=== PATIENT | female | born 1975 | race Caucasian/White ===

== ENCOUNTER 2016-06-12 09:27 | Day surgery (SDC) | payer BC ==
[~2016-06-12 09:27] MED LIST: OMNIPAQUE 300 MG/50 ML (CATH LAB) IV ONE; WATER FOR IRRIG STERILE IR ONE
--- NOTE | 2016-06-12 10:21 | Short Stay Summary ---
Short Stay Documentation Date of service: 06/12/16 - History H&P: obtained from office - Allergies and Medications Current Medications: Allergies No Known Allergies Allergy (Verified 06/04/16 11:32) Home Medications Medication Instructions Recorded Confirmed Last Taken Type Nitrofurantoin Macrocrysta(Nf) 100 mg PO BID 06/04/16 06/12/16 06/09/16 History [Macrodantin CAP] oxyCODONE /ACETAMINOPHEN [Percocet 1 tab PO PRN PRN 06/04/16 06/12/16 06/11/16 History 5/325 mg] - Brief post op/procedure progress note Date of procedure: 06/12/16 Pre-op diagnosis: right uret stone 3mnm Anesthesia: RAMONA Surgeon: YAYA CHÁVEZ Estimated blood loss: minimal Condition: stable - Hospital course Hospital course: [facility]pac[facility] - Disposition Condition at discharge: Good Disposition: DISCHARGED TO HOME OR SELFCARE Short Stay Discharge Plan Activity: advance as tolerated Diet: advance as tolerated Follow up with: YAYA CHÁVEZ MD [Staff Physician] - 7 Days
--- NOTE | 2016-06-12 10:31 | Anesthesia Day of Surgery ---
Anesthesia Day of Surgery - Day of Surgery Patient Examined: Yes Patient H&P Reviewed: Yes Patient is NPO: Yes
--- NOTE | 2016-06-12 10:31 | Anesthesia Consultation ---
Anesthesia Consult and Med Hx Date of service: 06/12/16 - Airway Anesthetic Teeth Evaluation: Good ROM Head & Neck: Adequate Mental/Hyoid Distance: Adequate Mallampati Class: Class II Intubation Access Assessment: Probably Good - Pre-Operative Health Status ASA Pre-Surgery Classification: ASA1 Proposed Anesthetic Plan: General - Pulmonary Hx Smoking: No Hx Sleep Apnea: No (DION PRE SCREEN NEGATIVE) - Cardiovascular System Hx Hypertension: No - Endocrine Hx Renal Disease: Yes (kidney stones) - Other Systems Hx Cancer: No
[2016-06-12] MEDS ORDERED: XYLOCAINE MPF 2% ONE (10:40)
[2016-06-12] MEDS ORDERED: DILAUDID ONE (10:40)
[2016-06-12] MEDS ORDERED: ZOFRAN ONE (10:40)
[2016-06-12] MEDS ORDERED: DIPRIVAN 10 MG/ML IV ONE (10:41)
[2016-06-12] MEDS ORDERED: WATER FOR IRRIG STERILE IR ONE (10:52)
[2016-06-12] MEDS ORDERED: OMNIPAQUE 300 MG/50 ML (CATH LAB) IV ONE (10:52)
[2016-06-12] MEDS ORDERED: PEPCID IV NR (11:00)
[2016-06-12] MEDS ORDERED: NACL 0.9% 1000 ML 1,000 ML IV SCH (11:00)
[2016-06-12] MEDS ORDERED: VERSED IV NR (11:00)
[2016-06-12] MEDS ORDERED: ANCEF/STERILE WATER 2 GM/20 ML IV NR (11:00)
--- NOTE | 2016-06-12 12:28 | Post Anesthesia Evaluation ---
- Post Anesthesia Evaluation Patient Participated: Yes Airway Patent: Yes Stable Respiratory Function: Yes Nausea/Vomiting: No Temp > 96.8F: Yes Pain Manageable: Yes Adequeate Hydration: Yes Anesthesia Complications: No
[2016-06-12 13:11] VITALS: BP 106/67
--- NOTE | 2016-06-13 09:02 | Fluoroscopy Report ---
FLUOROSCOPY RETROGRADE FLUOROSCOPY History: Right ureteral stone. Findings: Fluoroscopy was provided by radiology during retrograde urography by Dr. Stark with urology. 11 fluoroscopic images were captured. The left pyelogram is normal. No filling defect or abnormal dilatation. The right Polygram demonstrates an occluding stone or other filling defect in the mid to distal right ureter. Operative notes say the right ureteral stone was removed with a grasper. Subsequent images demonstrate right ureteroscopy and placement of a right ureteral stent which adequately drains the right renal collecting system on the final image. Impression: Right ureteral stone, removed. Right ureteral stent placement as described. Please correlate with procedural report by Dr. Stark.
--- NOTE | 2016-06-20 09:31 | Operative Report ---
PREOPERATIVE DIAGNOSIS: Right distal ureteral 3 mm stone. POSTOPERATIVE DIAGNOSIS: Right distal ureteral 3 mm stone. PROCEDURES: Right ureteroscopy, stone basket extraction, laser. ESTIMATED BLOOD LOSS: Minimal. COMPLICATIONS: None. FINDINGS: Right distal spiculated stone making it difficult for removal. CLINICAL INDICATIONS: The patient counseled RCBA, antibiotics, SCDs, did undergo expected management. She had not undergone expected management and had not passed the stone. She was counseled on the options and this was included on the options of treatment and did not wanted to proceed with this, antibiotics, SCDs. DESCRIPTION OF PROCEDURE: The patient was transferred to OR suite in supine position, anesthesia, dorsal lithotomy, prepped and draped in standard fashion. A 22-Irish scope passed. Pancystoscopy 30 and 70-degree lens demonstrated no tumors, lesions or other abnormality. At this point, the cannulated 8-Irish cone-tipped catheter, contrast injected. Normal left distal ureter, proximal ureter, renal pelvis, calyces. Repeated on the right side at the side of the stone and there appeared to be maybe some slight fullness and a filling defect and a radiopaque density. Rigid ureteroscope passed. We saw a stone just proximal to the UVJ, triceps passed, unable to manipulate, unable to remove. At this point, when started the manipulation, the stone was grasped, extracted, and removed. The ureteroscope passed up to the proximal ureter. No residual stones identified. Wire backloaded on the cystoscope. A 6-Irish double-J stent was passed over the wire under direct and fluoroscopic visualization. When the wire and instrument was removed, there was nice proximal J, nice distal J within the bladder, bladder drained. No palpable urethral masses. The patient was awakened and transferred to PACU in good and stable condition. Of note, a string actually was left in place and was secured to the suprapubic area with Steri-Strips. Instead of removing the string, it was left in place for a staged future removal. JOB# [id number] ATS/NTS
== END 2016-06-12 13:25 | disposition home or self-care (01) ==
LOC: OR 09:27
PROVIDERS: ATTEND Urology
DX: N20.1 Calculus of ureter (principal)
CPT/HCPCS: 36415; 52320; 52332; 74420; 81025; 82365; A4217; C1726; C1758; C1769; C2617; J0690; J1170; J2250; J2405; J2704; J7030; Q9967